=== PATIENT | male | born 1950 | race Caucasian/White ===

== ENCOUNTER 2018-11-07 14:43 | Inpatient (IN) ==
[2018-11-07] MEDS ORDERED: Clindamycin 600 mg/NS Premix 600 MG/50 ML PIGGYBACK IV.SIG ONE (15:05)
[2018-11-07] MEDS ORDERED: Ketorolac Inj 30 MG/ML (IVP) Vial IV.PUSH ONE (15:07)
--- NOTE | 2018-11-07 15:26 | ED ---
HPI General Chief complaint: Dental/Oral Stated complaint: Dental/Oral Complaint Time Seen by Provider: 11/07/18 14:59 Source: patient and family Mode of arrival: ambulatory Limitations: no limitations History of Present Illness HPI Narrative: 68-year-old male that presents to the ED for evaluation of swelling and pain to his right lower jaw. Per patient he has had this for about 2-3 weeks now. Per patient he continues to get bigger. Per patient he has an appointment with an oral surgeon in 2 weeks but the pain and the swelling is getting worse which is what prompted evaluation. Patient is not taking anything for this. Denies any history of diabetes. Per patient he had a similar presentation about 10-15 years ago and had to have it lanced in the operating room. Per patient he does have bad dentition. He does not know the name of the oral surgeon he is supposed to follow-up with. He states that currently his pain is 8 out of 10. States that it hurts to chew. Denies any fevers chills or sweats. No history of immunosuppression. 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 Related Data Home Medications Medication Instructions Recorded Confirmed aspirin [Aspir-81] 81 mg PO DAILY 11/07/18 11/07/18 hydrochlorothiazide 12.5 mg PO DAILY 11/07/18 11/07/18 simvastatin 40 mg PO QPM 11/07/18 11/07/18 Allergies Allergy/AdvReac Type Severity Reaction Status Date / Time No Known Allergies Allergy Verified 11/07/18 15:05 Review of Systems ROS: all other systems reviewed are negative [facility] Social History Social History Smoking Status: Unknown if ever smoked How Often Do You Have a Drink Containing Alcohol: Unable to Obtain Recent Travel in [facility] within the Last 8 Weeks: No Recent Out of Country Travel within the Last 8 Weeks: No Immunization History Tetanus Immunization: Unsure Exam Narrative Exam Narrative: GENERAL: well appearing. SKIN: Focused skin assessment warm/dry. HEAD: Atraumatic. Normocephalic. EYES: Pupils equal and round. No scleral icterus. No injection or drainage. ENT: No nasal bleeding or discharge. Mucous membranes pink and moist. Tongue is midline. No Uvula deviation. Patient does have a significant indurated area on the right lower jaw now about 8 cm x 5 cm. Slightly tender. Warm to the touch. Inside the mouth he does have bad dentition especially on the right lower jaw as well as the left upper jaw. It appears to have some discharge noted as well. NECK: Trachea midline. No JVD. CARDIOVASCULAR: Regular rate and rhythm. No murmur appreciated. RESPIRATORY: No accessory muscle use. Clear to auscultation. Breath sounds equal bilaterally. GASTROINTESTINAL: Abdomen soft, non-tender, nondistended. Hepatic and splenic margins not palpable. MUSCULOSKELETAL: No obvious deformities. No clubbing. No cyanosis. No edema. Full range of motion of the upper and lower extremity bilaterally. 2+ pulses bilaterally. NEUROLOGICAL: Awake and alert. No obvious cranial nerve deficits. Motor grossly within normal limits. Normal speech. PSYCHIATRIC: Appropriate mood and affect; insight and judgment normal. Course Initial Documented Vital Signs Temperature 99.0 F 11/07/18 14:49 Pulse Rate 94 H 11/07/18 14:49 Respiratory Rate 20 11/07/18 14:49 Blood Pressure 142/80 H 11/07/18 14:49 Pulse Oximetry 99 11/07/18 14:49 Last Documented Vital Signs Temperature 99.0 F 11/07/18 14:49 Pulse Rate 94 H 11/07/18 14:49 Respiratory Rate 20 11/07/18 14:49 Blood Pressure 142/80 H 11/07/18 14:49 Pulse Oximetry 99 11/07/18 14:49 Medical Decision Making BRIAN Attestation BRIAN supervised visit: Yes Attestation: I, Dr. Mendes, have reviewed the advance practice practitioner's documentation and am in agreement, met with the patient face to face, made the diagnosis, and the medical decision making was done by me. *My assessment and Findings: Right lower mandible dental caries abscess. Patient has no evidence of airway compromise. The patient does have a significant amount of purulent material noted on CT scan with erosion of the mandible. Patient will be admitted for IV antibiotics. The be a consult with the oral maxilla surgeon. MDM Narrative Medical decision making narrative: 68-year-old male presents to the ED for evaluation of lower jaw swelling. Patient was properly examined and was found to have signs and symptoms consistent appears to be likely dental abscess. It is definitely enlarged. It is unclear if it is more skin versus mild related. My attending recommends CT scan, labs and antibiotics. Patient agrees with this plan. Patient was given also pain medication IV. Labs and imaging showed what appears to be a mandibular abscess. Case was discussed with my attending who recommends to speak with maxillofacial. Spoke with Dr. Schneider over the phone who recommends the patient be admitted for IV antibiotics to see if this alone will help bring down the swelling and possible surgery. He will see the patient as the patient is admitted to medicine. Patient was told this and agrees with plan. Case was discussed with MEÑO Joseph who agrees admission to his service. Medical Screen Exam Complete: Yes Emergency Medical Condition: Yes Differential Diagnosis Differential Diagnosis: Dental abscess versus skin abscess versus cellulitis Medical Records Medical records reviewed: Yes I reviewed the patient's medical records. Lab Data Lab results reviewed: Yes I reviewed the patient's lab results. Result diagrams: 11/07/18 15:15 11/07/18 15:15 Lab Results 11/07/18 11/07/18 11/07/18 Range/Units 15:15 15:15 15:15 WBC 12.1 H (4.0-11.0) th/mm3 RBC 3.86 L (4.50-5.90) mil/mm3 Hgb 13.4 (13.0-17.0) gm/dL Hct 37.4 L (39.0-51.0) % MCV 97.1 (80.0-100.0) fL MCH 34.8 H (27.0-34.0) pg MCHC 35.8 (32.0-36.0) % RDW 13.0 (11.6-17.2) % Plt Count 301 (150-450) th/mm3 MPV 7.1 (7.0-11.0) fL Neut % (Auto) 76.7 H (16.0-70.0) % Lymph % (Auto) 12.9 (9.0-44.0) % [place] % (Auto) 7.5 (0.0-8.0) % Eos % (Auto) 2.4 (0.0-4.0) % Baso % (Auto) 0.5 (0.0-2.0) % Neut # (Auto) 9.3 H (1.8-7.7) th/mm3 Lymph # (Auto) 1.6 (1.0-4.8) th/mm3 [place] # (Auto) 0.9 (0.0-0.9) th/mm3 Eos # (Auto) 0.3 (0.0-0.4) th/mm3 Baso # (Auto) 0.1 (0.0-0.2) th/mm3 WBC Differential . Differential Comment Auto diff final PT 10.3 (9.8-11.6) sec INR 1.0 Ratio Sodium 132 L (136-145) meq/L Potassium 3.2 L (3.5-5.1) meq/L Chloride 90 L (98-107) meq/L Carbon Dioxide 31.8 (21.0-32.0) meq/L Anion Gap 10 (5-15) meq/L BUN 12 (7-18) mg/dL Creatinine 0.97 (0.60-1.30) mg/dL Estimated GFR 77 L (>89) mL/min Random Glucose 105 (74-106) mg/dL Calcium 8.4 L (8.5-10.1) mg/dL Imaging Data Attestation: I personally reviewed and interpreted this imaging study as follows : Radiologist's impression: Soft Tissue Neck CT 11/07/18 15:05 CONCLUSION: 1. Focal loculated fluid collection in the soft tissues just inferior to the body of the right mandible measuring 3.1 x 2.0 cm characteristic of a soft tissue abscess. 2. There is bony erosion involving the body of the mandible indicating dental disease. There is nonspecific edema in the soft tissues along the right side of the mandible. 3. There appears to be some mildly prominent right-sided lymph nodes suggestive of reactive adenopathy. 4. Mild increased thickening of the right tonsillar pillar most likely related to the inflammatory process from the mandible. However, recommend direct visualization for further evaluation. Discharge Plan Discharge Disposition Patient Disposition: ED Admit(ED Internal Use Only) Discharge Order Discharge Orders: ED Use Only Admit Order (Routine); Ordered 11/07/18 Ordered By: Arias Haley Discharge Details Diagnosis: Abscess of mandible Physicians Team ED Provider: Jose Mendes ED Midlevel Provider: Arias Haley Primary Care Provider: [facility] Attending Provider: Vanessa Camarillo Other Providers: Marcial Schneider Status ED Status: Admitted Patient
[2018-11-07 15:33] LABS: Baso # (Auto) 0.1 th/mm3 (0.0-0.2); Baso % (Auto) 0.5 % (0.0-2.0); Eos # (Auto) 0.3 th/mm3 (0.0-0.4); Eos % (Auto) 2.4 % (0.0-4.0); Hematocrit 37.4 % (39.0-51.0); Hemoglobin 13.4 gm/dL (13.0-17.0); Lymph # (Auto) 1.6 th/mm3 (1.0-4.8); Lymph % (Auto) 12.9 % (9.0-44.0); Mean Corpuscular HGB Conc 35.8 % (32.0-36.0); Mean Corpuscular Hemoglobin 34.8 pg (27.0-34.0); Mean Corpuscular Volume 97.1 fL (80.0-100.0); Mean Platelet Volume 7.1 fL (7.0-11.0); Mono # (Auto) 0.9 th/mm3 (0.0-0.9); Mono % (Auto) 7.5 % (0.0-8.0); Neut # (Auto) 9.3 th/mm3 (1.8-7.7); Neut % (Auto) 76.7 % (16.0-70.0); Platelet Count 301 th/mm3 (150-450); Red Blood Count 3.86 mil/mm3 (4.50-5.90); White Blood Count 12.1 th/mm3 (4.0-11.0)
[2018-11-07 15:36] LABS: Prothrombin Time 10.3 sec (9.8-11.6)
[2018-11-07 15:45] LABS: Calcium 8.4 mg/dL (8.5-10.1); Carbon Dioxide 31.8 meq/L (21.0-32.0); Potassium 3.2 meq/L (3.5-5.1)
--- NOTE | 2018-11-07 16:32 | CT ---
EXAM DATE: 11/07/2018 4:22 PM EST AGE/SEX: 68 years / Male INDICATIONS: Right lower dental pain with submandibular swelling. CLINICAL DATA: This is the patient's initial encounter. Patient reports that signs and symptoms have been present for 2 weeks and indicates a pain score of 5/10. MEDICAL/SURGICAL HISTORY: None. None. RADIATION DOSE: 13.60 CTDI (mGy) COMPARISON: No prior exams available for comparison. TECHNIQUE: Helical acquisition was performed using a multirow detector CT scanner during the adminis tration of 55 ml Omnipaque 350 (iohexol) nonionic water-soluble contrast as a single exam dose. Usi ng automated exposure control and adjustment of the mA and/or kV according to patient size, radiation dose was kept as low as reasonably achievable to obtain optimal diagnostic quality images. DICOM fo rmat image data is available electronically for review and comparison. FINDINGS: On today's examination there is a focal loculated fluid collection in the soft tissues just inferior to the body of the right mandible measuring 3.1 x 2.0 cm characteristic of a soft tissue abscess. The re is surrounding edema in the subcutaneous soft tissues in this location with soft tissue swelling a long the right mandible area. There are bony erosions involving the body of the right mandible indica ting dental disease. The body of the left mandible is grossly intact. There are several mildly promin ent lymph nodes in the proximal right carotid chain measuring about 1.6 cm. There is a prominent subm ental lymph node on the right side measuring 1.1 cm. This is most likely reactive adenopathy due to t he inflammatory process. The submandibular glands are symmetric bilaterally. The parotid glands are s ymmetric. There is some thickening of the right tonsillar pillar most likely from inflammatory change s from the right mandible. The thyroid gland is unremarkable. The lung apices are grossly clear. CONCLUSION: 1. Focal loculated fluid collection in the soft tissues just inferior to the body of the right helen ble measuring 3.1 x 2.0 cm characteristic of a soft tissue abscess. 2. There is bony erosion involving the body of the mandible indicating dental disease. There is nons pecific edema in the soft tissues along the right side of the mandible. 3. There appears to be some mildly prominent right-sided lymph nodes suggestive of reactive adenopat hy. 4. Mild increased thickening of the right tonsillar pillar most likely related to the inflammatory p rocess from the mandible. However, recommend direct visualization for further evaluation. Electronically signed by: Ricardo Perry MD Board Certified Radiologist 11/07/2018 4:31 PM EST
[2018-11-07] MEDS ORDERED: Sod Chloride 0.9% Inj 1,000 ML IV.SIG SCH (17:00)
[2018-11-07] MEDS ORDERED: Sodium Chloride 0.9% 2 ML Flush PRN IV.FLUSH (17:01)
--- NOTE | 2018-11-07 17:02 | P.HPIM ---
History of Present Illness Primary Care Physician: [facility] History of Present Illness: This patient is a 68 y/o male with HTN, DLD who presents to the ED with swlling and pain of his right lower mandible. He has had the symptoms for approximately 2-3 weeks without any improvement. He says that the right side of his jaw continues to get worse. He had an appt with an oral surgeon in two weeks but the pain and swelling was getting worse so he came into the ed for evaluation. Patient has poor dentition. He says he had a similar episode with a dental abscess approximately 10 yrs ago that needed to be drained. He denies any fevers or chills. No abd pain, no chest pain, no nausea or vomiting. No other complaints from the patient. Patient is not having any difficulty swallowing, no resp distress. 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 Social Hx tobacco smoker 1/2 ppd x 40 yrs, 2-3 beers per day for 30 yrs, denies hx of drug use. Fam Hx None Review of Systems All other systems reviewed negative except as stated in HPI PMFSH - History History Provided By: Patient - Tobacco History Smoking Status: Unknown if ever smoked - Alcohol History How Often Do You Have a Drink Containing Alcohol: Unable to Obtain - Travel History Recent Travel in the [place] Within the Last 8 Weeks: No Recent Travel Out of the Country Within the Last 8 Weeks: No - Immunization History Tetanus Immunization: Unsure Medications and Allergies Active Medications: Active Medications Clindamycin/Sodium Chloride (Cleocin 600 Mg/Ns Premix) 600 mg in 50 mls @ 100 mls/hr IV.SIG Q8H ILYA Lactated Ringer's (Lr 1000 Ml Inj) 1,000 mls @ 125 mls/hr IV.CONT .Q8H ILYA Sodium Chloride (Ns Inj) 1,000 mls @ 1,000 mls/hr IV.SIG BOLUS ILYA Stop: 11/07/18 17:59 Potassium Chloride (Klor-Con 10) 30 meq PO ONCE ONE Stop: 11/07/18 16:51 Allergies Allergy/AdvReac Type Severity Reaction Status Date / Time No Known Allergies Allergy Verified 11/07/18 15:05 Home Medications Medication Instructions Recorded Confirmed Type aspirin [Aspir-81] 81 mg PO DAILY 11/07/18 11/07/18 History hydrochlorothiazide 12.5 mg PO DAILY 11/07/18 11/07/18 History simvastatin 40 mg PO QPM 11/07/18 11/07/18 History Exam Vital signs: Vital Signs 11/07/18 14:49 Temperature 99.0 F Pulse Rate 94 H Respiratory Rate 20 Blood Pressure 142/80 H Pulse Oximetry 99 Intake & Output 11/06/18 11/07/18 11/07/18 18:59 06:59 18:59 Intake Total 50 / 50 Balance 50 / 50 Weight 74.843 kg Intake: IV 50 / 50 Cleocin 600 mg/NS Premix 600 mg 50 / 50 In 50 ml @ 100 mls/hr IV.SIG ONCE ONE Rx#:[id number] Narrative: alert and oriented x 3 Right madibular swelling present, slightly tender to touch S1S2 CTA B/L Soft, nontender, normal bowel sounds no edema of exts No neuro deficits. Results - Labs CBC & Chem 7: 11/07/18 15:15 11/07/18 15:15 Labs: Short CBC 11/07/18 Range/Units 15:15 WBC 12.1 H (4.0-11.0) th/mm3 Hgb 13.4 (13.0-17.0) gm/dL Hct 37.4 L (39.0-51.0) % Plt Count 301 (150-450) th/mm3 BMP 11/07/18 15:15 Sodium 132 L Potassium 3.2 L Chloride 90 L Carbon Dioxide 31.8 BUN 12 Creatinine 0.97 Calcium 8.4 L - Imaging Impressions Soft Tissue Neck CT 11/07/18 15:05 CONCLUSION: 1. Focal loculated fluid collection in the soft tissues just inferior to the body of the right mandible measuring 3.1 x 2.0 cm characteristic of a soft tissue abscess. 2. There is bony erosion involving the body of the mandible indicating dental disease. There is nonspecific edema in the soft tissues along the right side of the mandible. 3. There appears to be some mildly prominent right-sided lymph nodes suggestive of reactive adenopathy. 4. Mild increased thickening of the right tonsillar pillar most likely related to the inflammatory process from the mandible. However, recommend direct visualization for further evaluation. Caprini VTE Risk Assessment Caprini VTE Risk Assessment: Moderate/High Risk (score >= 2) Caprini Risk Assessment Model: Point Value = 1 Point Value = 2 Point Value = 3 Point Value = 5 Age 41-60 Minor surgery BMI > 25 kg/m2 Swollen legs Varicose veins or History of unexplained or recurrent spontaneous Oral contraceptives or hormone replacement Sepsis (< 1 month) Serious lung disease, including pneumonia (< 1 month) Abnormal pulmonary function Acute myocardial infarction Congestive heart failure (< 1 month) History of inflammatory bowel disease Medical patient at bed rest Age 61-74 Arthroscopic surgery Major open surgery (> 45 min) Laparoscopic surgery (> 45 min) Malignancy Confined to bed (> 72 hours) Immobilizing plaster cast Central venous access Age >= 75 History of VTE Family history of VTE Factor V Leiden Prothrombin [id number] Lupus anticoagulant Anticardiolipin antibodies Elevated serum homocysteine Heparin-induced thrombocytopenia Other congenital or acquired thrombophilia Stroke (< 1 month) Elective arthroplasty Hip, pelvis, or leg fracture Acute spinal cord injury (< 1 month) Prophylaxis Regimen: Total Risk Factor Score Risk Level Prophylaxis Regimen 0-1 Low Early ambulation 2 Moderate Order ONE of the following: *Sequential Compression Device (SCD) *Heparin 5000 units SQ BID 3-4 Higher Order ONE of the following medications: *Heparin 5000 units SQ TID *Enoxaparin/Lovenox 40 mg SQ daily (WT < 150 kg, CrCl > 30 mL/min) *Enoxaparin/Lovenox 30 mg SQ daily (WT < 150 kg, CrCl > 10-29 mL/min) *Enoxaparin/Lovenox 30 mg SQ BID (WT < 150 kg, CrCl > 30 mL/min) AND/OR *Sequential Compression Device (SCD) 5 or more Highest Order ONE of the following medications: *Heparin 5000 units SQ TID (Preferred with Epidurals) *Enoxaparin/Lovenox 40 mg SQ daily (WT < 150 kg, CrCl > 30 mL/min) *Enoxaparin/Lovenox 30 mg SQ daily (WT < 150 kg, CrCl > 10-29 mL/min) *Enoxaparin/Lovenox 30 mg SQ BID (WT < 150 kg, CrCl > 30 mL/min) AND *Sequential Compression Device (SCD) Assessment and Plan - Plan This patient is a 68 y/o male with HTN, DLD who presents to the ED with swlling and pain of his right lower mandible. He has had the symptoms for approximately 2-3 weeks without any improvement. He says that the right side of his jaw continues to get worse. He had an appt with an oral surgeon in two weeks but the pain and swelling was getting worse so he came into the ed for evaluation. Patient has poor dentition. He says he had a similar episode with a dental abscess approximately 10 yrs ago that needed to be drained. He denies any fevers or chills. No abd pain, no chest pain, no nausea or vomiting. No other complaints from the patient. No resp distress, no difficulty swallowing. Patient is on room air. 1. Sepsis 2/2 Right submandibular abscess Patient with tachycardia, elevated wbc count CT of the neck shows a 3.1 x 2.0 cm abscess to the body of the right mandible likely the source of the patient's symptoms. Maxillofacial surgery has been consulted. We will follow up with their recs. Patient will be continued on IVF Lactate ordered Blood cultures ordered Continue Clindamycin IV Tylenol as needed for fever. 2. DLD Continue statin 3. HTN Current blood pressure in the 160s systolic. Start Norvasc, will continue to monitor and adjust his meds as needed. DVT prophylaxis, no pharmacotherapy. Patient may need surgical intervention.
[2018-11-07] MEDS: Morphine Inj 4 MG/ML Vial IV.PUSH PRN (17:39)
--- NOTE | 2018-11-07 18:23 | P.CON ---
History of Present Illness Service: Oral & Maxillofacial Surgery Consult date: 11/07/18 Requesting Physician: Arias Haley Reason for Consult: Right facial abscess Primary Care Provider: [facility]ician [facility] Chief Complaint: Pain and swelling in right face History of Present Illness: 68-year-old male with a history of hypertension hyperlipidemia presents to the [place] ED with a 3-week history of right-sided facial pain and swelling. He notes that the swelling initially occurred 3 weeks ago and became progressively worse. He reports that is difficult for him to swallow solid foods but is able to tolerate his own secretions at this time. He denies any difficulty breathing. He denies any numbness in his jaw. Patient also notes pain on his right mandibular canine and over the posterior right mandibular alveolar ridge. He reports that he had a similar episode approximately 10-15 years ago and he was taken to the operating room for incision and drainage of the right face at this time. He does note his last extraction in the right posterior mandible was approximately 10-12 years ago. Upon arrival to the emergency department he received a CT maxillofacial which demonstrated a abscess of the right face primarily contained within the soft tissue. Also appeared to have bony erosion of the right posterior mandible. The oral maxillofacial surgery service was consulted for evaluation and definitive management. Review of Systems Constitutional: Reports malaise Eyes: Denies change in vision Ears, Nose, Mouth, and Throat: Reports dental pain, Reports difficulty swallowing, Reports facial pain, Reports neck lump, Reports neck pain, Reports pain with swallowing Cardiovascular: Denies chest pain Respiratory: Denies cough Gastrointestinal: Denies abdominal pain PMFSH - History History Provided By: Patient - Tobacco History Second Hand Smoke Exposure: No Tobacco Use In Past 30 Days: Yes Smoking Status: Current every day smoker Tobacco Type: Cigarettes - Alcohol History How Often Do You Have a Drink Containing Alcohol: 4 or more times a week - Substance Use History Substance History: No History of Abuse - Travel History Recent Travel in the [place] Within the Last 8 Weeks: No Recent Travel Out of the Country Within the Last 8 Weeks: No - Immunization History Tetanus Immunization: <5 Years Hx Influenza Vaccine This Season: No Medications and Allergies Active Medications: Active Medications Hydrocodone Bitart/Acetaminophen ([place] 5/325) 1 tab PO Q4H PRN PRN Reason: PAIN SCALE 6 TO 10 Amlodipine Besylate (Norvasc) 5 mg PO DAILY ILYA Aspirin (Aspirin Chew) 81 mg PO DAILY [facility] Atorvastatin Calcium (Lipitor) 20 mg PO HS [facility] Clindamycin/Sodium Chloride (Cleocin 600 Mg/Ns Premix) 600 mg in 50 mls @ 100 mls/hr IV.SIG Q8H [facility] Lactated Ringer's (Lr 1000 Ml Inj) 1,000 mls @ 125 mls/hr IV.CONT .Q8H ILYA Last Admin: 11/07/18 17:34 Dose: 125 mls/hr Miscellaneous (Pill Splitter) 1 each OTHER UNSCH PRN PRN Reason: PILL SPLITTER Morphine Sulfate (Morphine Inj) 2 mg IV.PUSH Q4H PRN PRN Reason: BREAKTHROUGH PAIN Last Admin: 11/07/18 17:39 Dose: 2 mg Sodium Chloride (Ns Flush) 2 ml IV.FLUSH BID ILYA Sodium Chloride (Ns Flush) 2 ml IV.FLUSH PRN PRN PRN Reason: FLUSH AFTER USING IV ACCESS Allergies Allergy/AdvReac Type Severity Reaction Status Date / Time No Known Allergies Allergy Verified 11/07/18 15:05 Home Medications Medication Instructions Recorded Confirmed Type aspirin [Aspir-81] 81 mg PO DAILY 11/07/18 11/07/18 History hydrochlorothiazide 12.5 mg PO DAILY 11/07/18 11/07/18 History simvastatin 40 mg PO QPM 11/07/18 11/07/18 History Physical Exam Vital signs: Vital Signs 11/07/18 14:49 Temperature 99.0 F Pulse Rate 94 H Respiratory Rate 20 Blood Pressure 142/80 H Pulse Oximetry 99 Intake & Output 11/06/18 11/07/18 11/07/18 18:59 06:59 18:59 Intake Total 50 / 50 Balance 50 / 50 Weight 71.7 kg Intake: IV 50 / 50 Cleocin 600 mg/NS Premix 600 mg 50 / 50 In 50 ml @ 100 mls/hr IV.SIG ONCE ONE Rx#:[id number] Other: Weight On Admission 71.7 kg Narrative: General: Well-developed male in no apparent distress Neurological: Alert and oriented to person, place, and time. HEENT: Head/Face: Right sided facial edema inferior and lateral to the mandible with erythema of the overlying skin. Decrease range of mandibular motion JESSEE ~ 30mm. Eyes: EOMI Oral Cavity/Oropharynx: Erythematous gingiva and mucosa in the posterior right mandible, appears ulcerated, with purulent drainage. Poor oral hygiene with heavy calculus present throughout the remaining dentition. Teeth #3, 27 grossly decayed, with increased sensitivity to percussion and palpation of tooth #27. Tooth #3 is supraerupted. Floor of mouth soft. Uvula midline. Mild fullness of the right tonsillar pillars. Neck: Tenderness to palpation of the right submandibular region with edema. Cardiovascular: Regular rate. Pulmonary: Normal work of breathing on room air. Abdomen: Soft, non-tender. Musculoskeletal: No joint tenderness, deformity, effusions. Full range of motion in shoulder, elbow, hip knee, ankle, hands and feet. Extremities: Warm, well perfused. Results - Labs CBC & Chem 7: 11/07/18 15:15 11/07/18 15:15 Labs: Laboratory Results - last 24 hr 11/07/18 11/07/18 11/07/18 15:15 15:15 15:15 WBC 12.1 H RBC 3.86 L Hgb 13.4 Hct 37.4 L MCV 97.1 MCH 34.8 H MCHC 35.8 RDW 13.0 Plt Count 301 MPV 7.1 Neut % (Auto) 76.7 H Lymph % (Auto) 12.9 [place] % (Auto) 7.5 Eos % (Auto) 2.4 Baso % (Auto) 0.5 Neut # (Auto) 9.3 H Lymph # (Auto) 1.6 [place] # (Auto) 0.9 Eos # (Auto) 0.3 Baso # (Auto) 0.1 WBC Differential . Differential Comment Auto diff final PT 10.3 INR 1.0 Sodium 132 L Potassium 3.2 L Chloride 90 L Carbon Dioxide 31.8 Anion Gap 10 BUN 12 Creatinine 0.97 Estimated GFR 77 L Random Glucose 105 Calcium 8.4 L - Imaging Impressions Soft Tissue Neck CT 11/07/18 15:05 CONCLUSION: 1. Focal loculated fluid collection in the soft tissues just inferior to the body of the right mandible measuring 3.1 x 2.0 cm characteristic of a soft tissue abscess. 2. There is bony erosion involving the body of the mandible indicating dental disease. There is nonspecific edema in the soft tissues along the right side of the mandible. 3. There appears to be some mildly prominent right-sided lymph nodes suggestive of reactive adenopathy. 4. Mild increased thickening of the right tonsillar pillar most likely related to the inflammatory process from the mandible. However, recommend direct visualization for further evaluation. Assessment and Plan - Assessment (1) Abscess of mandible Code(s): M27.2 - Inflammatory conditions of jaws Status: Acute - Plan 68-year-old male history of hypertension and hyperlipidemia with a greater than [id number] history of smoking who presents with a right-sided facial abscess that extends to the right mandible. The bony structure of the right mandible appears eroded on CT scan in the area of previous extraction of the posterior mandibular molar. Differential diagnosis includes abscess of odontogenic origin vs. osteomyelitis vs oral squamous cell carcinoma. Patient will require incision and drainage of the right facial abscess as well as extraction of any indicated teeth including teeth numbers 3 and 27 as well as a biopsy of the right mandible and overlying mucosa/gingiva under general anesthesia. Patient is posted for the OR tentatively tomorrow afternoon. Risks, benefits, alternatives discussed with patient including pain, swelling, bleeding, infection, nerve injury, alveolar osteitis. Patient agrees to the procedure verbally. Written consent will be obtained tomorrow. Recommendations: Agree with continuing IV antibiotic therapy, clindamycin 600 mg every 6 hours Clear liquid diet okay for now, please make patient n.p.o. at midnight Daily CBC and CRP Please keep head of bed elevated Pain medication per primary team Thank you for this consult. Please do not hesitate to contact me with any questions or concerns at [phone]. Marcial Schneider DDS, MD
[2018-11-07] MEDS: Sodium Chloride 0.9% 2 ML Flush BID IV.FLUSH SCH (20:59)
[2018-11-07] MEDS: Clindamycin 600 mg/NS Premix 600 MG/50 ML PIGGYBACK IV.SIG SCH (23:26)
[2018-11-08] MEDS: Morphine Inj 4 MG/ML Vial IV.PUSH PRN ×2 (01:14→21:20)
[2018-11-08 04:41] LABS: Baso # (Auto) 0.1 th/mm3 (0.0-0.2); Baso % (Auto) 0.4 % (0.0-2.0); Eos # (Auto) 0.3 th/mm3 (0.0-0.4); Eos % (Auto) 2.2 % (0.0-4.0); Hematocrit 37.7 % (39.0-51.0); Hemoglobin 13.2 gm/dL (13.0-17.0); Mean Corpuscular Hemoglobin 33.9 pg (27.0-34.0); Mean Corpuscular Volume 96.7 fL (80.0-100.0); Mean Platelet Volume 7.4 fL (7.0-11.0); Mono # (Auto) 0.7 th/mm3 (0.0-0.9); Mono % (Auto) 5.6 % (0.0-8.0); Neut # (Auto) 9.7 th/mm3 (1.8-7.7); Neut % (Auto) 75.8 % (16.0-70.0); Platelet Count 293 th/mm3 (150-450); Red Cell Distribution Width 12.6 % (11.6-17.2); White Blood Count 12.8 th/mm3 (4.0-11.0)
[2018-11-08 04:53] LABS: Calcium 8.3 mg/dL (8.5-10.1); Carbon Dioxide 31.3 meq/L (21.0-32.0); Magnesium 2.1 mg/dL (1.5-2.5); Potassium 3.7 meq/L (3.5-5.1)
[2018-11-08] MEDS: Clindamycin 600 mg/NS Premix 600 MG/50 ML PIGGYBACK IV.SIG SCH (07:13)
--- NOTE | 2018-11-08 08:28 | P.PN ---
Subjective Interval history: No acute events overnight. Afebrile. Patient reports that pain medication he was given around midnight helped with the discomfort. Denies any difficulty breathing at this time. Physical Exam Vital signs: Vital Signs 11/07/18 14:49 11/07/18 20:00 11/08/18 00:00 Temperature 99.0 F 99.7 F H 99.6 F Pulse Rate 94 H 79 84 Respiratory Rate 20 18 18 Blood Pressure 142/80 H 129/89 143/89 H Pulse Oximetry 99 99 96 11/08/18 04:00 Temperature 98.3 F Pulse Rate 82 Respiratory Rate 18 Blood Pressure 119/86 Pulse Oximetry 97 Intake & Output 11/07/18 11/08/18 11/08/18 18:59 06:59 18:59 Intake Total 50 / 50 1190 / 1190 Output Total 475 / 475 Balance 50 / 50 715 / 715 Weight 71.7 kg Intake: IV 50 / 50 950 / 950 LR 1000 mL Inj 1,000 ML @ 125 900 / 900 mls/hr IV.CONT .Q8H ILYA Rx#: [id number] Cleocin 600 mg/NS Premix 600 mg 50 / 50 50 / 50 In 50 ml @ 100 mls/hr IV.SIG Q8H ILYA Rx#:[id number] Oral 240 / 240 Output: Urine 475 / 475 Other: Weight On Admission 71.7 kg Narrative: General: Well-developed male in no apparent distress Neurological: Alert and oriented to person, place, and time. HEENT: Head/Face: Right sided facial edema inferior and lateral to the mandible with erythema of the overlying skin. Decrease range of mandibular motion JESSEE ~ 30mm. Eyes: EOMI Oral Cavity/Oropharynx: Erythematous gingiva and mucosa in the posterior right mandible, appears ulcerated, with purulent drainage. Poor oral hygiene with heavy calculus present throughout the remaining dentition. Teeth #3, 27 grossly decayed, with increased sensitivity to percussion and palpation of tooth #27. Tooth #3 is supraerupted. Floor of mouth soft. Uvula midline. Mild fullness of the right tonsillar pillars. Neck: Tenderness to palpation of the right submandibular region with edema. Cardiovascular: Regular rate. Pulmonary: Normal work of breathing on room air. Abdomen: Soft, non-tender. Musculoskeletal: No joint tenderness, deformity, effusions. Full range of motion in shoulder, elbow, hip knee, ankle, hands and feet. Extremities: Warm, well perfused. Results - Labs CBC & Chem 7: 11/08/18 04:04 11/08/18 04:04 Laboratory Results - last 24 hr 11/07/18 11/07/18 11/07/18 15:15 15:15 15:15 WBC 12.1 H RBC 3.86 L Hgb 13.4 Hct 37.4 L MCV 97.1 MCH 34.8 H MCHC 35.8 RDW 13.0 Plt Count 301 MPV 7.1 Neut % (Auto) 76.7 H Lymph % (Auto) 12.9 [place] % (Auto) 7.5 Eos % (Auto) 2.4 Baso % (Auto) 0.5 Neut # (Auto) 9.3 H Lymph # (Auto) 1.6 [place] # (Auto) 0.9 Eos # (Auto) 0.3 Baso # (Auto) 0.1 WBC Differential . Differential Comment Auto diff final PT 10.3 INR 1.0 Sodium 132 L Potassium 3.2 L Chloride 90 L Carbon Dioxide 31.8 Anion Gap 10 BUN 12 Creatinine 0.97 Estimated GFR 77 L Random Glucose 105 Lactic Acid Calcium 8.4 L Magnesium C-Reactive Protein 11/07/18 11/08/18 11/08/18 21:43 04:04 04:04 WBC 12.8 H RBC 3.90 L Hgb 13.2 Hct 37.7 L MCV 96.7 MCH 33.9 MCHC 35.0 RDW 12.6 Plt Count 293 MPV 7.4 Neut % (Auto) 75.8 H Lymph % (Auto) 16.0 [place] % (Auto) 5.6 Eos % (Auto) 2.2 Baso % (Auto) 0.4 Neut # (Auto) 9.7 H Lymph # (Auto) 2.0 [place] # (Auto) 0.7 Eos # (Auto) 0.3 Baso # (Auto) 0.1 WBC Differential . Differential Comment Auto diff final PT INR Sodium 132 L Potassium 3.7 Chloride 92 L Carbon Dioxide 31.3 Anion Gap 9 BUN 14 Creatinine 0.89 Estimated GFR 85 L Random Glucose 90 Lactic Acid 1.4 Calcium 8.3 L Magnesium 2.1 C-Reactive Protein 11.00 H - Imaging Impressions Soft Tissue Neck CT 11/07/18 15:05 CONCLUSION: 1. Focal loculated fluid collection in the soft tissues just inferior to the body of the right mandible measuring 3.1 x 2.0 cm characteristic of a soft tissue abscess. 2. There is bony erosion involving the body of the mandible indicating dental disease. There is nonspecific edema in the soft tissues along the right side of the mandible. 3. There appears to be some mildly prominent right-sided lymph nodes suggestive of reactive adenopathy. 4. Mild increased thickening of the right tonsillar pillar most likely related to the inflammatory process from the mandible. However, recommend direct visualization for further evaluation. Assessment and Plan - Assessment (1) Abscess of mandible Code(s): M27.2 - Inflammatory conditions of jaws Status: Acute - Plan 68-year-old male history of hypertension and hyperlipidemia with a greater than [id number] history of smoking who presents with a right-sided facial abscess that extends to the right mandible. The bony structure of the right mandible appears eroded on CT scan in the area of previous extraction of the posterior mandibular molar. Differential diagnosis includes abscess of odontogenic origin vs. osteomyelitis vs oral squamous cell carcinoma. Patient will require incision and drainage of the right facial abscess as well as extraction of any indicated teeth including teeth numbers 3 and 27 as well as a biopsy of the right mandible and overlying mucosa/gingiva under general anesthesia. Patient is posted for the OR tentatively tomorrow afternoon. Risks, benefits, alternatives discussed with patient including pain, swelling, bleeding, infection, nerve injury, alveolar osteitis. Patient agrees to the procedure verbally. Written consent will be obtained later today Recommendations: Agree with continuing IV antibiotic therapy, clindamycin 600 mg every 6 hours Keep NPO for OR Daily CBC and CRP Please keep head of bed elevated Pain medication per primary team Thank you for this consult. Please do not hesitate to contact me with any questions or concerns at [phone]. Marcial Schneider DDS, MD
[2018-11-08] MEDS ORDERED: Sodium Chlor 0.9% Inj 500 ML IV.CONT ONE (08:30)
[2018-11-08] MEDS ORDERED: Chlorhexidine Gluconate 2% 1 Pack (2 Cloths) TOPICAL ONE (08:30)
[2018-11-08] MEDS ORDERED: Metoprolol Tartrate 25 MG Tablet PO ONE (08:30)
[2018-11-08] MEDS ORDERED: amLODIPine 5 MG Tablet PO SCH (09:00)
[2018-11-08] MEDS: amLODIPine 5 MG Tablet PO SCH (09:05)
--- NOTE | 2018-11-08 09:17 | P.PNIM ---
Subjective Interval history: no subjective fever or chills no vision change no new hearing change no breathing difficulty swallowing fine says he can taste something strange in his mouth but didnt notice any pus currently NPO Physical Exam Vital signs: Last Vital Signs Temp 98.8 F 11/08/18 08:00 Pulse 69 11/08/18 08:00 Resp 18 11/08/18 08:00 BP 136/73 11/08/18 08:00 Pulse Ox 96 11/08/18 08:00 Intake & Output 11/06/18 11/07/18 11/08/18 11/09/18 06:59 06:59 06:59 06:59 Intake Total 1240 / 1240 50 / 50 Output Total 475 / 475 Balance 765 / 765 50 / 50 Weight 71.7 kg gen: nad heent: perrla, heent, RIGHT sided facial jaw swelling. 2+ teeth on RIGHT side mouth, + erythema. mild ttp. cvs:s1/s2 resp: cta gi: soft, non tender, non distended neuro: eomi, v1,v2, v3 intact. no slurred speech or droop. Results Labs CBC & Chem 7: 11/08/18 04:04 11/08/18 04:04 Imaging Imaging: Impressions Soft Tissue Neck CT 11/07/18 15:05 CONCLUSION: 1. Focal loculated fluid collection in the soft tissues just inferior to the body of the right mandible measuring 3.1 x 2.0 cm characteristic of a soft tissue abscess. 2. There is bony erosion involving the body of the mandible indicating dental disease. There is nonspecific edema in the soft tissues along the right side of the mandible. 3. There appears to be some mildly prominent right-sided lymph nodes suggestive of reactive adenopathy. 4. Mild increased thickening of the right tonsillar pillar most likely related to the inflammatory process from the mandible. However, recommend direct visualization for further evaluation. Assessment and Plan (1) Abscess of mandible: Code(s): M27.2 - Inflammatory conditions of jaws Status: Acute Plan Patient is a pleasant 68-year-old male with past medical history of hypertension and hyperlipidemia presenting for right facial swelling found to have evidence of abscess formation. Infectious disease: Right maxillary abscess Oral maxillofacial very consulted Continue antibiotics + add bacid Currently awaiting OR CBC, CRP daily for monitoring Follow-up cultures Supplemental oxygen as needed as needed IV fluids - CT: Focal loculated fluid collection in the soft tissues just inferior to the body of the right mandible measuring 3.1 x 2.0 cm characteristic of a soft tissue abscess. - pain control: norco 1 tab q4hrs Cardiology: Hypertension, hyperlipidemia home regimen CODE STATUS: Full code DVT prophylaxis Disposition: Medical surgery unit Progress Note: Quality VTE Deep Vein Thrombosis/Pulmonary Embolism Present on Admission: No
[2018-11-08] MEDS: Sodium Chloride 0.9% 2 ML Flush BID IV.FLUSH SCH ×2 (13:58→21:26)
[2018-11-08] MEDS ORDERED: Lidocaine 1%/Epinephrine 1:100,000 Inj 50 ML Vial ONE (18:19)
[2018-11-08] MEDS ORDERED: Artificial Tears Opth Oint 3.5 GM Tube ONE (18:44)
[2018-11-08] MEDS ORDERED: Clindamycin Inj 600 MG/4 ML Vial ONE (18:45)
[2018-11-08] MEDS ORDERED: Chlorhexidine Gluconate 0.12% Liq 15 ML UDC ONE (19:05)
[2018-11-08] MEDS ORDERED: Microfibrillar Collagen Hemostat 1 GM Packet TOPICAL ONE (19:37)
--- NOTE | 2018-11-08 20:06 | P.OP ---
- Preoperative Diagnosis (1) Submandibular abscess - Postoperative Diagnosis (1) Submandibular abscess Date of procedure: 11/08/18 Procedure: - Incision and drainage of right submandibular abscess - Extraction of teeth #3 and #27 - Incisional biopsy of right posterior mandible (bone), oral mucosa posterior right mandible, right posterolateral tongue Anesthesia: GETA, local Surgeon: Marcial Schneider DDS, MD Lead Caster: Abhishek Babin Estimated blood loss (mL): 30 IV fluids (mL): 900 Urine output (mL): 0 Pathology: other (Right posterolateral tongue, Right posterior mandible bone, Oral mucosa right posterior mandible, Micro: right neck aspriate (gram stain, culture, fungal, AFB)) Operation and Findings: Operative Findings: Approximately 20 cc of purulence noted in the right submandibular space. The oral mucosa of the right posterior mandible appeared ulcerated and necrotic The right posterior mandibular bone remained stable There was an ulcerated, firm lesion of the right posterolateral tongue measuring approximately 1.5cm in diameter in greatest dimension. Indications for Surgery: The patient is a 68 y/o M with h/o tobacco abuse, HTN, who presents for surgical drainage of a right submandibular abscess. Procedure: The patient was identified in the preoperative holding area and medical history and informed consent were reviewed with the patient. All questions were answered. The patient was taken via stretcher to operating room 10 and placed in the supine position on the operating table. Standard lines and monitors were applied. The patient was preoxygenated and general anesthesia was induced via IV. The patient was intubated oroendotracheally without complications. The tube was secured by the Anesthesia team. Bilateral breath sounds and end tidal CO2 were noted. Eyes were taped. Both arms were tucked. Extremities were evaluated and found to be in normal range of motion with all pressure points padded. Preoperative antibiotics were administered. A second timeout was made. The patient was prepped and draped using sterile technique in a usual occupational medicine physician manner. A throat pack was placed and noted. Attention was directed towards the right inferior border of the mandible. An 18 gauge needle on a 10cc syringe was used to aspirate the right neck. Purulence was returned and the aspirate was sent to microbiology for analysis. Next,a 1 centimeter incision in the right neck was made through the cutaneous tissue parallel to and two fingerwidths below the inferior border of the mandible. Hemostat was then used to bluntly dissect through the platysma and subcutaneous tissues up to the inferior border of the mandible. Approximately 20cc of purulence was expressed. The hemostat was then used to explore the buccal and vestibular spaces along the posterior and anterior lateral body of the mandible. The same procedure was then performed on the medial surface of the right/left mandible with exploration of the right sublingual, submandibular, and pterygomandibular spaces. Next, a 60 mL syringe was used to thoroughly irrigate all explored spaces through the right neck incision. Attention was then brought intraorally. Local anesthetic was injected in the right mandible. Soft tissues surrounding teeth #3 and #27 were released with a periosteal elevator. Teeth #3 and #27 were luxated with straight elevators and removed with upper and lower universal forceps. The sockets were curetted and all granulation tissue removed. No purulence noted intraorally. The mucosa of the right posterior mandible appeared ulcerated and the tissue was very friable. The tissue was curetted and sent to pathology for analysis. Electrocautery was used to achieve hemostasis. Next, Rongeur forceps were used to obtain a small bony sample from the right posterior mandible and it was sent to pathology for analysis. The oral cavity was thoroughly inspected and an ulcerated firm lesion of the right posterolateral border of the tongue was noted. A #15 blade was used to create an elliptical incision to remove a portion of the lesion. The lesion was sent to pathology for analysis. Electrocautery was used to obtain hemostasis. Avitene was placed over the biopsy site of the right posterior mandibular oral mucosa. 1, 3-0 chromic suture was used to reapproximate the soft tissue. Next, a quarter inch [place] drain was placed along the medial surface of the mandible and advanced into the submandibular space and secured in place with a 2 -0 silk suture. The drain was then irrigated with copious amounts of normal saline. The oral cavity and oropharynx were irrigated with copious amounts of normal saline and the oropharynx was suctioned. The throat pack was removed under direct visualization and the oropharynx was suctioned. Prep and drapes were removed. The patient was cleansed and dried and turned back to the Anesthesia Care team where he was awakened without event and transferred to the PACU by the Anesthesia Care team for postoperative recovery. Postoperative Care Plan: Patient to return to the care of the medicine service for post-operative wound care and IV antibiotic therapy.
[2018-11-08] MEDS ORDERED: fentaNYL Citrate Inj 100 MCG/2 ML Ampul ONE (20:08)
[2018-11-08] MEDS: Lactobacillus Acidophilus/L. Spores Tablet PO SCH (21:25)
[2018-11-09 08:06] LABS: Baso # (Auto) 0.1 th/mm3 (0.0-0.2); Baso % (Auto) 0.7 % (0.0-2.0); Eos # (Auto) 0.1 th/mm3 (0.0-0.4); Eos % (Auto) 1.1 % (0.0-4.0); Hematocrit 32.2 % (39.0-51.0); Hemoglobin 11.9 gm/dL (13.0-17.0); Lymph # (Auto) 1.7 th/mm3 (1.0-4.8); Mean Corpuscular Hemoglobin 35.4 pg (27.0-34.0); Mean Corpuscular Volume 95.6 fL (80.0-100.0); Mean Platelet Volume 7.5 fL (7.0-11.0); Mono # (Auto) 0.8 th/mm3 (0.0-0.9); Mono % (Auto) 7.1 % (0.0-8.0); Neut # (Auto) 8.8 th/mm3 (1.8-7.7); Neut % (Auto) 76.1 % (16.0-70.0); Platelet Count 258 th/mm3 (150-450); Red Blood Count 3.37 mil/mm3 (4.50-5.90); Red Cell Distribution Width 12.4 % (11.6-17.2); White Blood Count 11.6 th/mm3 (4.0-11.0)
[2018-11-09] MEDS: Lactobacillus Acidophilus/L. Spores Tablet PO SCH ×2 (09:04→21:33)
[2018-11-09] MEDS: amLODIPine 5 MG Tablet PO SCH (09:04)
[2018-11-09] MEDS: Sodium Chloride 0.9% 2 ML Flush BID IV.FLUSH SCH ×2 (09:05→21:33)
--- NOTE | 2018-11-09 10:48 | P.PN ---
Subjective Interval history: No acute events overnight. Patient reports that his face is feeling much better since the surgery. He has been able to tolerate sips of clear liquids as of now. Physical Exam Vital signs: Vital Signs 11/08/18 12:00 11/08/18 18:04 11/08/18 20:00 Temperature 98.3 F 99.9 F H 98.5 F Pulse Rate 70 79 81 Respiratory Rate 18 18 20 Blood Pressure 131/73 149/79 H 156/74 H Pulse Oximetry 96 99 96 11/08/18 20:15 11/08/18 20:30 11/08/18 20:45 Temperature Pulse Rate 94 H 85 85 Respiratory Rate 18 17 17 Blood Pressure 167/75 H 166/66 H 150/70 H Pulse Oximetry 100 94 L 19 L 11/08/18 20:48 11/09/18 00:00 11/09/18 04:00 Temperature 99.8 F H 99.1 F 99.4 F Pulse Rate 87 83 82 Respiratory Rate 25 H 18 18 Blood Pressure 147/73 H 159/80 H 132/80 Pulse Oximetry 94 L 96 95 11/09/18 08:00 Temperature 98.9 F Pulse Rate 75 Respiratory Rate 18 Blood Pressure 142/76 H Pulse Oximetry 98 Intake & Output 11/08/18 11/09/18 11/09/18 18:59 06:59 18:59 Intake Total 2154 / 2154 2610 / 2610 104 / 104 Output Total 1500 / 1500 1330 / 1330 Balance 654 / 654 1280 / 1280 104 / 104 Weight 71.7 kg Intake: IV 2154 / 2154 1230 / 1230 104 / 104 LR 1000 mL Inj 1,000 ML @ 125 2000 / 2000 1126 / 1126 mls/hr IV.CONT .Q8H ILYA Rx#: [id number] Cleocin 600 mg/NS Premix 600 mg 50 / 50 In 50 ml @ 100 mls/hr IV.SIG Q8H ILYA Rx#:[id number] Cleocin Inj 600 MG In NS Inj 104 / 104 104 / 104 104 / 104 100 ML @ 100 mls/hr IV.SIG Q8H ILYA Rx#:[id number] Oral 480 / 480 Anesthesia Amount 900 / 900 Output: Urine 1500 / 1500 1300 / 1300 Estimated Blood Loss 30 / 30 Other: # Bowel Movements 0 Narrative: General: Well-developed male in no apparent distress Neurological: Alert and oriented to person, place, and time. HEENT: Head/Face: Right sided facial edema inferior and lateral to the mandible with erythema of the overlying skin, mildly tender to palpation, decreased from previous exam. Scott drain in place in right neck with serosanguineous output and minimal purulence. Eyes: EOMI Oral Cavity/Oropharynx: No purulence appreciated intraorally. Incision sites in right posterior mandible and right posterolateral tongue are hemostatic. Extraction sites are hemostatic. Floor of mouth soft, edematous and slightly elevated. Neck: Mild enderness to palpation of the right submandibular region with edema. Cardiovascular: Regular rate. Pulmonary: Normal work of breathing on room air. Abdomen: Soft, non-tender. Musculoskeletal: No joint tenderness, deformity, effusions. Full range of motion in shoulder, elbow, hip knee, ankle, hands and feet. Extremities: Warm, well perfused. Results - Labs CBC & Chem 7: 11/09/18 06:47 11/08/18 04:04 Laboratory Results - last 24 hr 11/09/18 11/09/18 06:47 06:47 WBC 11.6 H RBC 3.37 L Hgb 11.9 L Hct 32.2 L MCV 95.6 MCH 35.4 H MCHC 37.0 H RDW 12.4 Plt Count 258 MPV 7.5 Prelim Diff (Auto) Slide review pending Neut % (Auto) 76.1 H Lymph % (Auto) 15.0 [place] % (Auto) 7.1 Eos % (Auto) 1.1 Baso % (Auto) 0.7 Neut # (Auto) 8.8 H Lymph # (Auto) 1.7 [place] # (Auto) 0.8 Eos # (Auto) 0.1 Baso # (Auto) 0.1 WBC Differential . Diff Scan Auto diff confirmed Differential Comment . C-Reactive Protein 14.00 H Microbiology 11/08/18 19:05 Fluid - Other Gram Stain - Final 11/07/18 15:15 Blood - Peripheral Aerobic Blood Culture - Preliminary No growth in 1 day 11/07/18 15:15 Blood - Peripheral Anaerobic Blood Culture - Preliminary No growth in 1 day 11/07/18 15:20 Blood - Peripheral Aerobic Blood Culture - Preliminary No growth in 1 day 11/07/18 15:20 Blood - Peripheral Anaerobic Blood Culture - Preliminary No growth in 1 day Assessment and Plan - Plan 68-year-old male history of hypertension and hyperlipidemia with a greater than [id number] history of smoking who presents with a right-sided facial abscess that extends to the right mandible. He is now s/p incision and drainage of right submandibular abscess, incisional biopsy of right posterior mandible ( oral mucosa and bone), right posterior lateral tongue, and extraction of teeth numbers 3 and 27 on 11/08/2018. Differential diagnosis includes abscess of odontogenic origin vs. osteomyelitis vs oral squamous cell carcinoma. CRP and CBC elevated from previous, likely reactive 2/2 surgery and IV steroids administered perioperatively. Will keep Scott drain in place today, may begin to back out or remove drain tomorrow if CRP and CBC downtrend and no further purulence is appreciated. Recommendations: Agree with continuing IV antibiotic therapy, clindamycin 600 mg every 6 hours while inpatient and transitioning to PO on discharge for a total course of 7-10 days. OK to advance to soft diet Daily CBC and CRP Please keep head of bed elevated Pain medication per primary team -We will continue to follow-up with cultures and surgical pathology. Thank you for this consult. Please do not hesitate to contact me with any questions or concerns at [phone]. Marcial Schneider DDS, MD
--- NOTE | 2018-11-09 13:32 | P.PNIM ---
Subjective Interval history: Seen and evaluated this morning at bedside. Patient reports that he is doing better this morning and says that his pain is improved since he had a drain placed in the incision and drainage he feels much better. Patient sad about losing 2 teeth. Physical Exam Vital signs: Last Vital Signs Temp 99 F 11/09/18 12:00 Pulse 81 11/09/18 12:00 Resp 18 11/09/18 12:00 BP 110/70 11/09/18 12:00 Pulse Ox 94 L 11/09/18 12:00 Intake & Output 11/07/18 11/08/18 11/09/18 11/10/18 06:59 06:59 06:59 06:59 Intake Total 1240 / 1240 4764 / 4764 104 / 104 Output Total 475 / 475 2830 / 2830 Balance 765 / 765 1934 / 1934 104 / 104 Weight 71.7 kg 71.7 kg General: No acute distress HEENT: Dressing in place over right face with Santiago drain. 2 teeth missing. Cardia vascular: S1/S2 Respiratory: Clear to auscultation Gastrology: Soft, nontender, nondistended Results Labs CBC & Chem 7: 11/09/18 06:47 11/08/18 04:04 Labs: Microbiology 11/08/18 19:05 Fluid - Other Gram Stain - Final 11/08/18 19:05 Fluid - Other Wound Culture - Preliminary Immature growth - reincubate 11/07/18 15:15 Blood - Peripheral Aerobic Blood Culture - Preliminary No growth in 2 days 11/07/18 15:15 Blood - Peripheral Anaerobic Blood Culture - Preliminary No growth in 2 days 11/07/18 15:20 Blood - Peripheral Aerobic Blood Culture - Preliminary No growth in 2 days 11/07/18 15:20 Blood - Peripheral Anaerobic Blood Culture - Preliminary No growth in 2 days Assessment and Plan Plan Patient is a pleasant 68-year-old male with past medical history of hypertension and hyperlipidemia presenting for right facial swelling found to have evidence of abscess formation. Infectious disease: Right maxillary abscess Patient is now status post incision and drainage doing well. + santiago drain inplace for now Continue antibiotics + add bacid CBC, CRP daily for monitoring Follow-up cultures - pending Supplemental oxygen as needed as needed - CT: Focal loculated fluid collection in the soft tissues just inferior to the body of the right mandible measuring 3.1 x 2.0 cm characteristic of a soft tissue abscess. - pain control: norco 1 tab q4hrs Cardiology: Hypertension, hyperlipidemia home regimen CODE STATUS: Full code DVT prophylaxis Disposition: Medical surgery unit Progress Note: Quality VTE Deep Vein Thrombosis/Pulmonary Embolism Present on Admission: No
--- NOTE | 2018-11-09 18:43 | ECG ---
Date Performed: 11/08/2018 Time Performed: 15:42:48 PTAGE: 68 years EKG: Sinus rhythm . Right bundle branch block Abnormal ECG NO PREVIOUS TRACING DOCTOR: Cheo Galdamez Interpretating Date/Time 11/09/2018 18:43:09
[2018-11-10 00:15] VITALS: PULSE 72; RESP 18
[2018-11-10 08:31] VITALS: BP 149/81; TEMP 98.3; O2SAT 97
[2018-11-10 08:49] LABS: Baso # (Auto) 0.1 th/mm3 (0.0-0.2); Baso % (Auto) 0.9 % (0.0-2.0); Eos # (Auto) 0.3 th/mm3 (0.0-0.4); Eos % (Auto) 3.2 % (0.0-4.0); Hematocrit 34.7 % (39.0-51.0); Hemoglobin 12.2 gm/dL (13.0-17.0); Lymph # (Auto) 1.5 th/mm3 (1.0-4.8); Mean Corpuscular HGB Conc 35.1 % (32.0-36.0); Mean Corpuscular Hemoglobin 34.1 pg (27.0-34.0); Mean Platelet Volume 7.8 fL (7.0-11.0); Mono # (Auto) 0.7 th/mm3 (0.0-0.9); Mono % (Auto) 8.3 % (0.0-8.0); Neut # (Auto) 6.1 th/mm3 (1.8-7.7); Neut % (Auto) 70.6 % (16.0-70.0); Platelet Count 275 th/mm3 (150-450); Red Blood Count 3.58 mil/mm3 (4.50-5.90); Red Cell Distribution Width 12.6 % (11.6-17.2); White Blood Count 8.7 th/mm3 (4.0-11.0)
[2018-11-10] MEDS: Lactobacillus Acidophilus/L. Spores Tablet PO SCH (08:55)
[2018-11-10] MEDS: amLODIPine 5 MG Tablet PO SCH (08:56)
--- NOTE | 2018-11-10 09:58 | P.PN ---
Subjective Interval history: No acute events overnight. Patient reports that the drain fell out yesterday. Tolerating a soft diet without difficulty. Reports that he feels much better and has minimal pain. Physical Exam Vital signs: Vital Signs 11/09/18 12:00 11/09/18 16:00 11/09/18 20:00 Temperature 99 F 99.2 F 99.1 F Pulse Rate 81 72 74 Respiratory Rate 18 18 16 Blood Pressure 110/70 117/81 122/65 Pulse Oximetry 94 L 97 97 11/10/18 00:00 11/10/18 08:00 Temperature 99.3 F 98.3 F Pulse Rate 72 72 Respiratory Rate 18 18 Blood Pressure 161/74 H 149/81 H Pulse Oximetry 95 97 Intake & Output 11/09/18 11/10/18 11/10/18 18:59 06:59 18:59 Intake Total 1462 / 1462 1584 / 1584 1104 / 1104 Output Total 900 / 900 1500 / 1500 Balance 562 / 562 84 / 84 1104 / 1104 Intake: IV 982 / 982 1104 / 1104 1104 / 1104 LR 1000 mL Inj 1,000 ML @ 125 774 / 774 1000 / 1000 1000 / 1000 mls/hr IV.CONT .Q8H ILYA Rx#: [id number] Cleocin Inj 600 MG In NS Inj 208 / 208 104 / 104 104 / 104 100 ML @ 100 mls/hr IV.SIG Q8H ILYA Rx#:[id number] Oral 480 / 480 480 / 480 Output: Urine 900 / 900 1500 / 1500 Other: # Bowel Movements 0 Narrative: General: Well-developed male in no apparent distress Neurological: Alert and oriented to person, place, and time. HEENT: Head/Face: Right sided facial edema inferior and lateral to the mandible with erythema of the overlying skin, minimally tender to palpation, decreased from previous exam. Incision in right neck with scant mucinous drainage, no purulence appreciated. Eyes: EOMI Oral Cavity/Oropharynx: No purulence appreciated intraorally. Incision sites in right posterior mandible and right posterolateral tongue are hemostatic. Extraction sites are hemostatic. Floor of mouth soft, edematous and slightly elevated anteriorly and laterally along the right side. Neck: Mild tenderness to palpation of the right submandibular region with edema. Cardiovascular: Regular rate. Pulmonary: Normal work of breathing on room air. Abdomen: Soft, non-tender. Musculoskeletal: No joint tenderness, deformity, effusions. Full range of motion in shoulder, elbow, hip knee, ankle, hands and feet. Extremities: Warm, well perfused. Results - Labs CBC & Chem 7: 11/10/18 06:10 11/08/18 04:04 Laboratory Results - last 24 hr 11/10/18 11/10/18 06:10 06:10 WBC 8.7 RBC 3.58 L Hgb 12.2 L Hct 34.7 L MCV 97.0 MCH 34.1 H MCHC 35.1 RDW 12.6 Plt Count 275 MPV 7.8 Neut % (Auto) 70.6 H Lymph % (Auto) 17.0 [place] % (Auto) 8.3 H Eos % (Auto) 3.2 Baso % (Auto) 0.9 Neut # (Auto) 6.1 Lymph # (Auto) 1.5 [place] # (Auto) 0.7 Eos # (Auto) 0.3 Baso # (Auto) 0.1 WBC Differential . Differential Comment Auto diff final C-Reactive Protein 14.00 H Microbiology 11/08/18 19:05 Fluid - Other Gram Stain - Final 11/08/18 19:05 Fluid - Other Wound Culture - Preliminary Immature growth - reincubate 11/07/18 15:15 Blood - Peripheral Aerobic Blood Culture - Preliminary No growth in 2 days 11/07/18 15:15 Blood - Peripheral Anaerobic Blood Culture - Preliminary No growth in 2 days 11/07/18 15:20 Blood - Peripheral Aerobic Blood Culture - Preliminary No growth in 2 days 11/07/18 15:20 Blood - Peripheral Anaerobic Blood Culture - Preliminary No growth in 2 days Assessment and Plan - Plan 68-year-old male history of hypertension and hyperlipidemia with a greater than 83-mibr-kutj history of smoking who presents with a right-sided facial abscess that extends to the right mandible. He is now s/p incision and drainage of right submandibular abscess, incisional biopsy of right posterior mandible ( oral mucosa and bone), right posterior lateral tongue, and extraction of teeth numbers 3 and 27 on 11/08/2018. Differential diagnosis includes abscess of odontogenic origin vs. osteomyelitis vs oral squamous cell carcinoma. CBC normalized, CRP remains elevated but stable. Patient overall feeling much improved. Cultures displaying GPCs in clusters and strains. Recommendations: -OK to discharge today from a maxillofacial standpoint Agree with continuing antibiotic therapy, clindamycin 600 mg every 6 hours, transition to PO on discharge for a total course of 10 days. Continue soft diet Instructed patient to continue to irrigate right neck incision site twice a day. Patient may keep incision covered with Band-aid when in public, may leave site open to air at home. Pain medication per primary team -We will continue to follow-up with cultures and surgical pathology. -Patient to follow-up in approximately 1 week in office for re-evaluation Thank you for this consult. Please do not hesitate to contact me with any questions or concerns at [phone]. Marcial Schneider DDS,
--- NOTE | 2018-11-10 10:45 | P.DS ---
DS: Providers Date of admission: 11/07/18 17:05 Primary care physician: [facility] Consults: 11/07/18 17:02 Consult to [facility] Routine Consulting Provider: Marcial Schneider Reason for Consultation: Patient with right submandibular abscess Notified:: Service Spoke with:: Rosi Date Notified:: 11/07/18 Time Notified:: 17:14 Ordering Provider: CHRIS Brief History from admission: This patient is a 68 y/o male with HTN, DLD who presents to the ED with swlling and pain of his right lower mandible. He has had the symptoms for approximately 2-3 weeks without any improvement. He says that the right side of his jaw continues to get worse. He had an appt with an oral surgeon in two weeks but the pain and swelling was getting worse so he came into the ed for evaluation. Patient has poor dentition. He says he had a similar episode with a dental abscess approximately 10 yrs ago that needed to be drained. He denies any fevers or chills. No abd pain, no chest pain, no nausea or vomiting. No other complaints from the patient. Patient is not having any difficulty swallowing, no resp distress. 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 Social Hx tobacco smoker 1/2 ppd x 40 yrs, 2-3 beers per day for 30 yrs, denies hx of drug use. Fam Hx None DS: Diagnosis Discharge Diagnosis (1) Abscess of mandible: Status: Acute (2) Submandibular abscess: Status: Acute DS: Summary Right maxillary abscess The patient is a 68-year-old male with a past medical history of hypertension and hyperlipidemia who is presenting for right facial swelling and was found to have evidence of abscess formation. CT: Focal loculated fluid collection in the soft tissues just inferior to the body of the right mandible measuring 3.1 x 2 cm characteristic of a soft tissue abscess. Oral surgery was consulted. Patient is now status post incision and drainage and doing well. We continued antibiotics and the pt will complete a 10 day course of clindamycin. Probiotics were recommended. The pt was instructed to continue to irrigate right neck incision site twice a day. Patient may keep incision covered with Band-aid when in public, may leave site open to air at home. He will follow his cultures with oral surgery in his follow-up in one week. He will take pain control as needed. Time Spent with Patient Total time spent providing and/or coordinating discharge services: Less than 30 minutes Quality: VTE Deep Vein Thrombosis/Pulmonary Embolism Present on Admission: No Exam Narrative Exam Narrative: General: No acute distress. HEENT: Dressing in place over right face. Cardia vascular: S1/S2. Respiratory: Clear to auscultation Abdomen: Soft, nontender, nondistended. Extremities: No edema. Neuro: No gross deficits. Results Pending studies at discharge: Pending at discharge 11/08/18 Surgical [PTH] Routine Labs on day of discharge: Labs from last 24 hours 11/10/18 11/10/18 06:10 06:10 WBC 8.7 RBC 3.58 L Hgb 12.2 L Hct 34.7 L MCV 97.0 MCH 34.1 H MCHC 35.1 RDW 12.6 Plt Count 275 MPV 7.8 Neut % (Auto) 70.6 H Lymph % (Auto) 17.0 [place] % (Auto) 8.3 H Eos % (Auto) 3.2 Baso % (Auto) 0.9 Neut # (Auto) 6.1 Lymph # (Auto) 1.5 [place] # (Auto) 0.7 Eos # (Auto) 0.3 Baso # (Auto) 0.1 WBC Differential . Differential Comment Auto diff final C-Reactive Protein 14.00 H Preliminary micro results at discharge 11/08/18 19:05 Wound Culture - Preliminary Fluid - Other Immature growth - reincubate 11/07/18 15:15 Aerobic Blood Culture - Preliminary Blood - Peripheral No growth in 2 days Anaerobic Blood Culture - Preliminary No growth in 2 days 11/07/18 15:20 Aerobic Blood Culture - Preliminary Blood - Peripheral No growth in 2 days Anaerobic Blood Culture - Preliminary No growth in 2 days Impressions ITS Impressions Soft Tissue Neck CT 11/07/18 15:05 CONCLUSION: 1. Focal loculated fluid collection in the soft tissues just inferior to the body of the right mandible measuring 3.1 x 2.0 cm characteristic of a soft tissue abscess. 2. There is bony erosion involving the body of the mandible indicating dental disease. There is nonspecific edema in the soft tissues along the right side of the mandible. 3. There appears to be some mildly prominent right-sided lymph nodes suggestive of reactive adenopathy. 4. Mild increased thickening of the right tonsillar pillar most likely related to the inflammatory process from the mandible. However, recommend direct visualization for further evaluation. Discharge Plan Discharge Disposition Patient Disposition: 01 Discharge Home Discharge Condition Condition: Good Discharge Order Discharge Orders: Discharge Order (Routine); Ordered 11/10/18 Ordered By: Tadeo Villa Discharge Details Anticipated Discharge Date: 11/10/18 Physicians Team ED Provider: Jose Mendes ED Midlevel Provider: Arias Haley Primary Care Provider: [facility] Attending Provider: Tadeo Villa Other Providers: Marcial Schneider Rxs /Orders / Referrals /Forms Prescriptions: New clindamycin HCl 300 mg capsule 600 mg PO Q6H 7 Days Qty: 56 RF: 0 Continue aspirin [Aspir-81] 81 mg Tablet,Delayed Release (Dr/Ec) 81 mg PO DAILY RF: 0 simvastatin 40 mg Tablet 40 mg PO QPM RF: 0 hydrochlorothiazide 12.5 mg Capsule 12.5 mg PO DAILY RF: 0 Referrals: Marcial Schneider, DDS [Physician] - See Instructions (Follow-up 1 week after discharge. Please call for an appointment time. Continue to irrigate incision twice a day with normal saline. Maintain a soft diet. Please take antibiotics as prescribed.) [facility] [Primary Care Provider] - See Instructions (1 week) Status ED Status: Left Department
[2018-11-10] MEDS: Sodium Chloride 0.9% 2 ML Flush BID IV.FLUSH SCH (11:37)
--- NOTE | 2018-11-18 19:18 | P.PNADD ---
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 The initial differential diagnosis included odontogenic abscess (secondary to dental caries) vs osteomyelitis vs oral squamous cell carcinoma.
--- NOTE | 2018-11-21 08:36 | PQ ---
Physician Query Response Document PATIENT: Ray Gan : 1950 ADMIT DATE: 11/07/2018 5:05 PM DISCH DATE: 11/10/2018 11:53 AM RESPONDING PROVIDER #: MSAYESS QUERY TEXT: Rule Out Sepsis Clarification Sepsis is documented in the Medical Record. Please clarify whether: -- Patient has sepsis - Please document confirmed, suspected or probable causative organism - Please document confirmed, suspected or probable localized infection - Please clarify if sepsis is related to a device - Please clarify if sepsis was present on admission -- Sepsis was ruled out (include corresponding diagnosis for patient?s clinical picture and treatment ) -- Patient had sepsis which is resolved -- Other, please specify If you have any additional questions/comments and/or concerns, please do not hesitate to reach out to the CDI/Coding Hotline, Ext. [phone]. The patient's Clinical Indicators include: H&P documents: 1.Sepsis 2/2 Right submandibular abscess Progress Notes & Discharge Summary do NOT document sepsis. No diagnosis of sepsis nor sepsis criteria documented in ED record. Blood cultures show no growth. Query created by: Lilia Black on 11/14/2018 5:28 PM RESPONSE TEXT: Provider disagreed with this CDI query. Electronically signed by: Tadeo Villa MD 11/21/2018 8:33 AM
== END 2018-11-10 11:53 | disposition home or self-care (01) | DRG 137 ==
LOC: NEPC 14:43 → NEDA 17:05 → N04 17:43
PROVIDERS: ADMIT Hospitalist; ATTEND Hospitalist
PROC: IDMOUTH (2018-11-08 18:39)
DX: C41.1 Malignant neoplasm of mandible; K02.9 Dental caries, unspecified; Z85.828 Personal history of other malignant neoplasm of skin; K12.2 Cellulitis and abscess of mouth; E78.5 Hyperlipidemia, unspecified; C01 Malignant neoplasm of base of tongue; I10 Essential (primary) hypertension; F17.210 Nicotine dependence, cigarettes, uncomplicated; C03.1 Malignant neoplasm of lower gum
CPT/HCPCS: 70491; 80048; 83605; 83735; 85025; 85610; 86140; 87015; 87040; 87070; 87077; 87102; 87116; 87181; 87184; 87185; 87205; 87206; 88305; 88307; 88309; 88311; 90765; 90775; 93005; 96365; 96375; 99285; J1885; J2250; J2270; J3010; J7120; Q9967